=== PATIENT | female | born 1960 | race Caucasian/White ===

== ENCOUNTER 2019-08-12 14:25 | Outpatient (CLI) | payer BC ==
--- NOTE | 2019-08-12 15:09 | MMO ---
Bilateral MAMMO Bilat Screen [facility]. CLINICAL HISTORY: Patient is 58 years old and is seen for screening. The patient has no family history of breast cancer. The patient has no personal history of cancer. VIEWS: The views performed were: bilateral craniocaudal with tomosynthesis and bilateral mediolateral oblique with tomosynthesis. FILMS COMPARED: The present examination has been compared to prior imaging studies performed at [facility] on 08/08/2017, and at [facility] on 11/06/2014. This study has been interpreted with the assistance of computer-aided detection. MAMMOGRAM FINDINGS: The breasts are heterogeneously dense, which could obscure a lesion on mammography. There are no suspicious masses, suspicious calcifications, or new areas of architectural distortion. IMPRESSION: THERE IS NO MAMMOGRAPHIC EVIDENCE OF MALIGNANCY. A ROUTINE FOLLOW-UP MAMMOGRAM IN 1 YEAR IS RECOMMENDED. THE RESULTS OF THIS EXAM WERE SENT TO THE PATIENT. ACR BI-RADS Category 1 - Negative MAMMOGRAPHY NOTE: 1. A negative mammogram report should not delay a biopsy if a dominant of clinically suspicious mass is present. 2. Approximately 10% to 15% of breast cancers are not detected by mammography. 3. Adenosis and dense breasts may obscure an underlying neoplasm. Reported by: ERASMO HANDY MD Electonically Signed: [id number]
== END 2019-08-12 14:26 | disposition home or self-care (01) ==
LOC: BICMAMMO 14:25
PROVIDERS: ATTEND Family Medicine
DX: Z12.31 Encounter for screening mammogram for malignant neoplasm of breast (principal)
CPT/HCPCS: 77063; 77067

== ENCOUNTER 2020-03-31 06:17 | Outpatient (CLI) | payer BC, OTHER ==
[2020-03-31 11:24] LABS: #Basophils 0.1 thou/uL (0.0-0.2); #Eosinphils 0.1 thou/uL (0.0-0.7); #Lymphocytes 3.1 thou/uL (1.20-3.40); #Monocytes 0.5 thou/uL (0.11-0.59); #Neutrophils 2.8 thou/uL (1.40-6.50); %Basophils 0.9 % (0.0-1.0); %Eosinophils 0.9 % (0.0-10.0); %Lymphocytes 47.7 % (21.0-51.0); %Monocytes 7.7 % (0.0-10.0); %Neutrophils 42.8 % (42.0-75.0); Hemoglobin 13.2 g/dL (12.0-16.0); Mean Corpuscular HGB CONC 33.9 g/dL (32.0-36.0); Mean Corpuscular Hemoglobin 33.6 pg (27.0-31.0); Mean Platelet Volume 7.4 fL (7.4-10.4); Platelet Count 212 thou/uL (130-400); RBC Distribution Width 11.2 % (11.5-14.5); Red Blood Cell (RBC) Count 3.92 mill/uL (4.20-5.40); White Blood Cell (WBC) Count 6.6 thou/uL (4.8-10.8)
[2020-03-31 12:05] LABS: Anion Gap 14 mmol/L (10-20); BUN (Urea Nitrogen) 12 mg/dL (9.8-20.1); Calc. Creatinine Clearance 0 mL/min (70-130); Calcium 9.6 mg/dL (7.8-10.44); Carbon Dioxide 26 mmol/L (23-31); Chloride 105 mmol/L (98-107); Estimated GFR-MDRD 67; Glucose 115 mg/dL (80-115); Potassium 4.1 mmol/L (3.5-5.1); Sodium 141 mmol/L (136-145)
[2020-04-01 18:03] LABS: SARS-CoV-2 MS2 Positive; SARS-CoV-2 N Gene Negative; SARS-CoV-2 S Gene Negative; SARS-CoV-2 orf1ab Negative
== END 2020-03-31 06:18 | disposition home or self-care (01) ==
LOC: LABBT 06:17
PROVIDERS: ATTEND Surgery
DX: Z01.812 Encounter for preprocedural laboratory examination (principal); Z11.59 Encounter for screening for other viral diseases; K64.9 Unspecified hemorrhoids
CPT/HCPCS: 80048; 85025; 87635; U0003

== ENCOUNTER 2020-04-03 12:00 | Day surgery (SDC) | payer BC ==
[2020-03-30 10:18] VITALS: BMI 24.8
[~2020-04-03 12:00] MED LIST: Dexamethasone 20 MG/5 ML VIAL ONE; EPHEDRINE 25 MG/5 ML SYRINGE ONE; Lidocaine 1% PF 5 ML VIAL ONE; Ondansetron PF 4 MG/2 ML Vial ONE; PROPOFOL 200 MG/20 ML VIAL ONE
[2020-04-03] MEDS ORDERED: Ketorolac Tromethamine 30 MG/ML VIAL ONE (12:42)
[2020-04-03] MEDS ORDERED: Lidocaine 1% w/Epinephrine 1:100K 20 ML VIAL ONE (14:13)
[2020-04-03] MEDS ORDERED: Bupivacaine 0.25% HCL 30 ML VIAL ONE (14:13)
[2020-04-03] MEDS ORDERED: Fentanyl 100 MCG/2 ML VIAL ONE (15:02)
[2020-04-03] MEDS ORDERED: Lidocaine 2% Jelly 5 ML TUBE ONE (15:58)
[2020-04-03] MEDS ORDERED: HYDROcodone/Acetaminophen 5/325 mg Tablet ONE (16:50)
--- NOTE | 2020-04-07 12:55 | PDOC.OP ---
Operative Note - Operative Note Operative Note: PROCEDURE: 3 quadrant open hemorrhoidectomy SURGEON: Kyle Cleaning M.D. DATE: 04/03/2020 PREOPERATIVE DIAGNOSIS: Grade 3 prolapsing internal hemorrhoids POSTOPERATIVE DIAGNOSIS: Grade 3 prolapsing internal hemorrhoid HISTORY: Patient with longstanding symptomatic hemorrhoids for which she has decided to undergo operative repair. FINDINGS: Grade 3 prolapsing internal hemorrhoids PROCEDURE IN DETAIL: After informed consent was obtained and appropriate preoperative antibiotics administered the patient was taken to the operating room she was placed in supine position and anesthesia was administered. She was placed in lithotomy position with appropriate support and padding of her legs and the perirectal area was prepped and draped in standard sterile fashion. Four-quadrant anoscopy was carried out and the largest hemorrhoidal bundles identified. These were at the left lateral, right posterior, and right anterior locations. The left lateral hemorrhoidal bundle was the largest and was addressed first. An elliptical incision was made at the base of the hemorrhoidal bundle and a hand-held LigaSure used to excise the hemorrhoidal tissue off of the underlying anal canal. The incision was then closed with a running locking 2-0 Vicryl suture, leaving the external portion open to drain. The other 2 hemorrhoidal bundles were excised in an identical manner. All suture lines were examined and hemostasis verified. The hemorrhoidal tissue was sent to pathology. Additional local anesthesia was infused for postoperative pain control and a Gelfoam plug with lidocaine ointment placed into the anal canal. The patient was extubated and taken to recovery in good condition. Estimated blood loss was minimal. There were no complications. Specimen is hemorrhoids.
== END 2020-04-03 17:52 | disposition home or self-care (01) ==
LOC: SDC 12:00
PROVIDERS: ATTEND Surgery
PROC: 06BY4ZC Excision of Hemorrhoidal Plexus, Percutaneous Endoscopic Approach (ICD-10-PCS; principal; 2020-04-03)
DX: K64.2 Third degree hemorrhoids (principal); E03.9 Hypothyroidism, unspecified; E78.5 Hyperlipidemia, unspecified; Z79.899 Other long term (current) drug therapy
CPT/HCPCS: 88304; 88342; J0690; J1100; J1885; J2001; J2405; J2704; J3010; S0020

== ENCOUNTER 2020-05-24 12:44 | Emergency (ER) | payer BC | END 2020-05-24 14:44 | disposition home or self-care (01) | LOC: ERS 12:44 | DX: A04.8 Other specified bacterial intestinal infections (principal); E03.9 Hypothyroidism, unspecified; E78.5 Hyperlipidemia, unspecified; Z79.899 Other long term (current) drug therapy | CPT/HCPCS: 99283 ==

== ENCOUNTER 2020-07-09 09:50 | Outpatient (CLI) | payer BC ==
--- NOTE | 2020-07-09 10:38 | ULT ---
EXAM: US Gallbladder RUQ CLINICAL HISTORY: Right upper quadrant pain. Abdominal pain. COMPARISON: None. FINDINGS: Pancreas: The visualized pancreas has a normal echotexture. Liver:Hepatic parenchyma has a normal echotexture. No hepatic masses or intrahepatic biliary dilatati on. Right hepatic lobe: 16.4 cm Gallbladder: No sonographic evidence of cholelithiasis, gallbladder wall thickening or pericholecysti c fluid. Frias's sign:Negative Portal Vein: Patent. Appropriate directional flow Bile ducts: 0.6 cm common bile duct diameter Right kidney: No hydronephrosis. Right kidney measures 3.7 x 3.8 x 9.8 cm in length. IMPRESSION: No sonographic evidence of cholelithiasis or cholecystitis.
== END 2020-07-09 09:51 | disposition home or self-care (01) ==
LOC: BICULT 09:50
PROVIDERS: ATTEND Internal Medicine Gastroenterology
DX: R10.10 Upper abdominal pain, unspecified (principal); B96.81 Helicobacter pylori [H. pylori] as the cause of diseases classified elsewhere
CPT/HCPCS: 76705

== ENCOUNTER 2022-09-21 12:58 | Outpatient (CLI) | payer BC | END 2022-09-21 12:59 | disposition home or self-care (01) | LOC: BICMAMMO 12:58 | PROVIDERS: ATTEND Family Medicine | DX: Z12.31 Encounter for screening mammogram for malignant neoplasm of breast (principal) | CPT/HCPCS: 77063; 77067 ==